=== PATIENT | female | born 1950 | race Caucasian/White ===

== ENCOUNTER 2024-02-29 09:17 | Emergency (ER) | payer SELFPAY ==
[2024-02-29] VITALS (12 sets, daily range): BP systolic 118–152; BP diastolic 59–76; PULSE 69–83; RESP 11–24; TEMP 36.8; O2SAT 95–100; BMI 21.7
--- NOTE | 2024-02-29 09:26 | ED.SYNCOPE ---
HPI - Syncope General Chief Complaint: Syncope Stated Complaint: Syncope Time Seen by Provider: 02/29/24 09:25 History of Present Illness HPI narrative: Patient is a 73-year-old female history of hypothyroidism presenting today with syncopal episode. Reports that she is visiting from [place] came in a few days ago she has been dealing with hip pain on the left side. She had some sort of nerve block in her gluteus, not in her spinal cord, about 3-4 weeks ago and since then has been having some pain. She got up this morning felt like she was dizzy had some blurriness of vision knew she needed to sit down went to go to the bed but missed the bed and hit the floor. Brief loss of consciousness. Not on antiplatelet or anticoagulation medication. She is pain in her hip which is chronic she has a numbness or tingling no changes in bowel or bladder habits no back pain. has not noticed any facial droop or slurring of speech. She reports that they were getting ready to go to breakfast. She is hungry. She has no numbness tingling or weakness. She has no chest pain or shortness of breath. No abdominal pain no painful frequent urination. She was feeling well yesterday. Related Data Previous Rx's Medication Instructions Recorded hydrocodone 5 mg-acetaminophen 325 1 tab PO Q6H PRN pain #10 tabs 02/29/24 mg tablet prednisone 20 mg tablet 20 mg PO DAILY #5 tabs 02/29/24 Allergies Allergy/AdvReac Type Severity Reaction Status Date / Time No Known Drug Allergies Allergy Verified 02/29/24 09:30 Patient History Social History Smoking Status: Never smoker Exam Initial Vital Signs Initial Vital Signs: Vital Signs Pulse Rate 74 02/29/24 09:20 Pulse Oximetry 100 02/29/24 09:20 GENERAL: Alert pleasant well-appearing 73-year-old female and in no acute distress. HEENT: Head atraumatic,EOMI, pupils reactive, face symmetric, moist mucous membranes CARDIOVASCULAR: Regular rate and rhythm without murmurs, rubs or gallops. RESPIRATORY: Breath sounds equal bilaterally, no wheezes rales or rhonchi. ABDOMEN: Soft, nontender. Normoactive bowel sounds all 4 quadrants. No guarding or rebound. EXTREMITIES: Normal range of motion, no clubbing or edema. Neurovascularly intact NEUROLOGICAL: Alert and oriented x4.Normal gait and speech. Cranial nerves II through XII grossly intact. Good [id number], good [id number], strength equal bilaterally, no dysarthria or aphasia, sensation in tact to soft touch bilaterally, no visual changes, no facial droop SKIN: Warm, dry, no laceration, no petechiae, no rashes or lesions. Scores NIH Stroke Scale Level of Conciousness: Alert, keenly responsive Ask month/age: Answers both questions correctly. Open/close eyes, close hand: Performs both tasks correctly Best gaze horizontal: Normal Visual hinds: No visual loss Facial palsy: Normal symetrical movement Left arm drift: No drift for full 10 sec Right arm drift: No drift for full 10 sec Left leg drift: No drift for full 5 sec Right leg drift: No drift for full 5 sec Limb ataxia: Absent Sensory on face/arms/legs: Normal, no sensory loss Best language: No aphasia, normal Dysarthria: Normal Extinction or inattention: No abnormality Total NIH Stroke scale score: 0 Course Orders Ordered: ED Orders 02/29/24 09:25 Complete Blood Count AUTO DIFF Stat Comprehensive Metabolic Panel Stat D Dimer Stat Lipase Stat Troponin & CK Cardiac Panel Stat 02/29/24 09:26 XR chest 1V Stat EKG-12 Lead Stat 02/29/24 10:00 Urine Culture Stat Urine Microscopic Stat Discontinued Medications Ketorolac Tromethamine (Ketorolac 30 Mg/Ml Vial) 15 mg IV NOW ONE Stop: 02/29/24 10:28 Last Admin: 02/29/24 10:52 Dose: 15 mg Documented By: SPF Vital Signs Vital signs: Vital Signs - 8 hr 02/29/24 09:20 02/29/24 09:25 02/29/24 09:26 Temperature 98.2 F Pulse Rate 74 71 Pulse Rate [Orthostatic Lying] Pulse Rate [Orthostatic Sitting] Pulse Rate [Orthostatic Standing] Respiratory Rate 15 Blood Pressure 133/62 133/62 Blood Pressure [Orthostatic Lying] Blood Pressure [Orthostatic Sitting] Blood Pressure [Orthostatic Standing] Pulse Oximetry 100 99 Oxygen Delivery Method Room Air 02/29/24 09:26 02/29/24 09:30 02/29/24 09:52 Temperature Pulse Rate 74 72 75 Pulse Rate [Orthostatic Lying] Pulse Rate [Orthostatic Sitting] Pulse Rate [Orthostatic Standing] Respiratory Rate 11 L 12 24 Blood Pressure Blood Pressure [Orthostatic Lying] Blood Pressure [Orthostatic Sitting] Blood Pressure [Orthostatic Standing] Pulse Oximetry 100 100 98 Oxygen Delivery Method Room Air 02/29/24 09:52 02/29/24 09:54 02/29/24 09:54 Temperature Pulse Rate 78 Pulse Rate [Orthostatic Lying] Pulse Rate [Orthostatic Sitting] Pulse Rate [Orthostatic Standing] Respiratory Rate Blood Pressure 152/67 H 141/63 H Blood Pressure [Orthostatic Lying] Blood Pressure [Orthostatic Sitting] Blood Pressure [Orthostatic Standing] Pulse Oximetry 99 Oxygen Delivery Method 02/29/24 09:55 02/29/24 09:55 02/29/24 09:58 Temperature Pulse Rate 83 Pulse Rate [Orthostatic Lying] 76 Pulse Rate [Orthostatic Sitting] 74 Pulse Rate [Orthostatic Standing] 83 Respiratory Rate 24 Blood Pressure 118/59 L Blood Pressure [Orthostatic Lying] 152/76 H Blood Pressure [Orthostatic Sitting] 141/63 H Blood Pressure [Orthostatic Standing] 118/59 L Pulse Oximetry 99 Oxygen Delivery Method Room Air 02/29/24 10:06 02/29/24 10:30 02/29/24 10:30 Temperature Pulse Rate 83 72 Pulse Rate [Orthostatic Lying] Pulse Rate [Orthostatic Sitting] Pulse Rate [Orthostatic Standing] Respiratory Rate 23 22 Blood Pressure 124/61 Blood Pressure [Orthostatic Lying] Blood Pressure [Orthostatic Sitting] Blood Pressure [Orthostatic Standing] Pulse Oximetry 98 95 Oxygen Delivery Method 02/29/24 11:00 02/29/24 11:00 02/29/24 11:21 Temperature Pulse Rate 73 69 Pulse Rate [Orthostatic Lying] Pulse Rate [Orthostatic Sitting] Pulse Rate [Orthostatic Standing] Respiratory Rate 20 21 Blood Pressure 146/67 H 146/67 H Blood Pressure [Orthostatic Lying] Blood Pressure [Orthostatic Sitting] Blood Pressure [Orthostatic Standing] Pulse Oximetry 97 96 Oxygen Delivery Method Room Air MDM - Syncope Lab Data 02/29/24 09:25 02/29/24 09:25 Labs: Lab Results 02/29/24 02/29/24 Range/Units 09:25 10:00 WBC 8.9 (4.5-11.0) X10^3/uL RBC 3.73 L (4.0-5.2) X10^6/uL Hgb 11.9 L (12.0-16.0) g/dL Hct 35.4 L (36-46) % MCV 94.7 (80-100) fL MCH 32.0 (26-34) PG MCHC 33.8 (30-36) % RDW 13.9 (11.6-14.8) % Plt Count 255 (150-400) X10^3/uL Neut % (Auto) 80.4 H (50-75) % Lymph % (Auto) 7.0 L (25-40) % [place] % (Auto) 9.9 (3-14) % Eos % (Auto) 2.3 (2-4) % Baso % (Auto) 0.4 (0-2) % Neut # (Auto) 7200 H (9185-1603) /uL Lymph # (Auto) 600 L (5818-0390) /uL [place] # (Auto) 900 (0-900) /uL Eos # (Auto) 200 (0-450) /uL Baso # (Auto) 0 (0-100) /uL D-Dimer 726 H (<500) ng/ml Sodium 134 L (137-145) mmol/L Potassium 3.7 (3.4-5.1) mmol/L Chloride 103 (98-107) mmol/L Carbon Dioxide 24 (22-32) mmol/L BUN 13 (7-17) mg/dL Creatinine 0.89 (0.52-1.04) mg/dL Estimated GFR > 60 (>60) mL/min BUN/Creatinine Ratio 14.6 (6-22) Glucose 119 H (80-110) mg/dL Calcium 9.2 (8.4-10.2) mg/dL Total Bilirubin 0.7 (0.2-1.3) mg/dL AST 33 (14-36) IU/L ALT 23 (<35) IU/L Alkaline Phosphatase 98 (38-126) U/L Total Creatine Kinase 32 (30-135) U/L Troponin I < 0.012 (0.01-0.034) ng/mL Total Protein 7.4 (6.3-8.2) g/dL Albumin 4.4 (3.5-5.0) g/dL Globulin 3.0 (1.7-4.1) g/dL Albumin/Globulin Ratio 1.5 (1.0-2.8) Lipase 46 (23-300) U/L Urine RBC None seen (0-5/HPF) Urine WBC 1-5/hpf (0-5/HPF) Ur Squamous Epith Cells 1-5 /hpf (0-5/HPF) Urine Bacteria None seen (None) Ur Culture Indicated? Specimen cultured Vol Urine Centrifuged 10ml (spun) Urine Dip Bedside Urine Glucose Negative Bedside Urine Bilirubin - Negative Bedside Urine Ketone - Negative Urine Specific [place] 1.015 Bedside Urine Occult Blood - Negative Bedside Urine pH 7.0 Bedside Urine Protein +/- 15 Bedside Urine Urobilinogen - Negative Bedside Urine Nitrite - Negative Bedside Urine Leukocytes +/- 15 Esterase Imaging Data Chest x-ray: Radiologist's Impression: PROCEDURE: XR CHEST 1V INDICATIONS: syncope TECHNIQUE: One view of the chest was acquired. COMPARISON: None. FINDINGS: Surgical changes and devices: None. Lungs and pleura: Lungs are clear. No pleural effusions or pneumothorax. Mediastinum: Mediastinal contours appear normal. Heart size is normal. Bones and chest wall: No suspicious bony lesions. Overlying soft tissues appear unremarkable. IMPRESSION: No acute cardiopulmonary abnormality is seen. Dictated by: Keyanna Craig M.D. on 02/29/2024 at 8:41 ECG Data Attestation: I personally reviewed and interpreted this ECG as follows: Interpretation: Normal sinus rhythm rate 71 MA interval 130 QRS [address] changes no T-wave inversions no priors to compare MDM Narrative Medical decision making narrative: Patient is 73-year-old female presenting today with syncopal episode. She had some presyncopal symptoms such as blurry vision dizziness. Brief loss of consciousness. Vitals are stable. She recently flew from [place] but she has no chest pain shortness of breath. No tachycardia or hypoxia. Blood work has been reviewed WBC 8.9 hemoglobin 11.9 hematocrit 35.4 platelets 255 Sodium 134 potassium 3.7 chloride 103 bicarb 24 BUN 13 creatinine 0.89 glucose 119 Troponin negative Liver enzymes within normal limits D-dimer 726 Chest x-ray reviewed no acute cardiopulmonary process EKGs reviewed no ischemia or arrhythmia Years score is negative, D-dimer is less than 1000 this is unlikely to be a pulmonary embolism NIH stroke scale is 0 no signs or symptoms of CVA. No need for imaging Patient had a syncopal episode with prodromal syndrome she is having some chronic ongoing hip pain but no cauda equina symptoms. Patient's injection 3-4 weeks ago was in her gluteus it was not in her spine. She has an appointment with her provider in about [address] [place] She has no injury from her fall. Vitals remain stable blood work has been reviewed overall reassuring. YEARS Algorithm for Pulmonary Embolism (PE) from [facility] on 02/29/2024 All calculations should be rechecked by clinician prior to use RESULT SUMMARY: PE excluded YEARS algorithm rules out PE (0.43% with symptomatic VTE during 3-month follow-up) INPUTS: patient ?> 0 = No Clinical signs of DVT ?> 0 = No Hemoptysis ?> 0 = No PE most likely diagnosis ?> 0 = No D-dimer >=,000 ng/mL FEU ?> 0 = No Discharge Plan Departure Patient Disposition: Home Clinical Impression: Vasovagal syncope Instructions: DI for Syncope in Adults (Fainting) Activity Restrictions/Additional Instructions: *You have been diagnosed with fainting syncope *What to do: At this time blood work is overall reassuring you are mildly anemic you may need to follow-up with your providers in [place] *Continue to take medications as directed Prednisone 20 mg once a day for 5 days Stella 1 tablet every 6 hours or at nighttime for severe *Follow up with your primary care provider in 2-3 days or call [phone] *Return to ER if you should have recurrent episode of passing out chest pain shortness of breath [or] any new, worsening or concerning symptoms CONTROLLED SUBSTANCE DISCHARGE (Narcotoic/benzodiazepine/Flexeril/Phenergan) 1. You have been prescribed narcotic medications, it does have acetaminophen/Tylenol/paracetamol in it, DO NOT TAKE MORE THAN 4,00mg in 24 hours of Tylenol. TRAMADOL DOES NOT CONTAIN TYLENOL 2. Please understand that we cannot provide further refills of narcotics, benzodiazepines or controlled substances through the ED and her pain management will need to be through your provider. 3. While on these medications you cannot drive or operate heavy machinery. 4. You cannot sign legal documents or perform any duties such as this. 5. As long as you're taking opiate pain medications he should also be taking a stool softener such as Colace, Dulcolax, MiraLAX or prune juice, to help avoid constipation. Prescriptions: New hydrocodone-acetaminophen 5-325 mg tablet 1 tab PO Q6H PRN (Reason: pain) Qty: 10 0RF prednisone 20 mg tablet 20 mg PO DAILY Qty: 5 0RF Stand Alone Forms: Patient Portal/API/Survey
--- NOTE | 2024-02-29 09:28 | EKG_ITS ---
[address] [address] Test Date: 2024-02-29 Pat Name: Asia Boyd Department: Room: Gender: Female [place]: : 1950 Requested By: Order Number: [id number] Reading MD: Steffen Shelley Measurements Intervals [place] Rate: 71 P: 42 HI: 130 QRS: 59 QRSD: 88 T: 68 QT: 382 QTc: 415 Interpretive Statements Normal sinus rhythm Electronically Signed On 03-02-2024 19:40:49 PST by Steffen Shelley
[2024-02-29 09:41] LABS: Add Manual Diff / Slide Review NO; Basophils Absolute Auto 0 /uL (0-100); Basophils Percent Auto 0.4 % (0-2); Eosinophils Absolute Auto 200 /uL (0-450); Eosinophils Percent Auto 2.3 % (2-4); Hematocrit 35.4 % (36-46); Hemoglobin 11.9 g/dL (12.0-16.0); Lymphocytes Absolute Auto 600 /uL (1100-4500); Mean Corpuscular HGB Conc 33.8 % (30-36); Mean Corpuscular Volume 94.7 fL (80-100); Monocytes Absolute Auto 900 /uL (0-900); Monocytes Percent Auto 9.9 % (3-14); Neutrophils Absolute Auto 7200 /uL (1500-7000); Neutrophils Percent Auto 80.4 % (50-75); Platelet Count 255 X10^3/uL (150-400); Red Blood Cell Count 3.73 X10^6/uL (4.0-5.2); Red Cell Distribution Width 13.9 % (11.6-14.8); White Blood Cell Count 8.9 X10^3/uL (4.5-11.0)
[2024-02-29 09:44] LABS: Alanine Aminotransferase 23 IU/L (<35); Albumin 4.4 g/dL (3.5-5.0); Albumin Globulin Ratio 1.5 (1.0-2.8); Alkaline Phosphatase 98 U/L (38-126); Aspartate Aminotransferase 33 IU/L (14-36); BUN Creatinine Ratio 14.6 (6-22); Bilirubin Total 0.7 mg/dL (0.2-1.3); Blood Urea Nitrogen 13 mg/dL (7-17); Calcium 9.2 mg/dL (8.4-10.2); Carbon Dioxide 24 mmol/L (22-32); Chloride 103 mmol/L (98-107); Creatine Kinase 32 U/L (30-135); Estimated Glomerular Filt Rate > 60 mL/min (>60); Glucose 119 mg/dL (80-110); HEMOLYSIS < 15 (0-50); Lipase 46 U/L (23-300); Potassium 3.7 mmol/L (3.4-5.1); Sodium 134 mmol/L (137-145); Total Protein 7.4 g/dL (6.3-8.2)
[2024-02-29 09:46] LABS: D Dimer 726 ng/ml (<500)
[2024-02-29 09:56] LABS: Troponin I < 0.012 ng/mL (0.01-0.034)
[2024-02-29 10:20] LABS: Urine Volume 10mL (spun)
[2024-02-29 10:26] LABS: Bacteria Urine None Seen; Culture Indicated Urine Specimen Cultured; RBC Urine None Seen (0-5/HPF); Squamous Epithelial Cell Urine 1-5 /HPF (0-5/HPF); WBC Urine 1-5/HPF (0-5/HPF)
[2024-02-29] MEDS: KETOROLAC 30 MG/ML VIAL 15 MG IV (10:52)
== END 2024-02-29 11:22 | disposition home or self-care (01) ==
PROVIDERS: Emergency Provider Emergency Medicine
DX: R55 Syncope and collapse (principal)
CPT/HCPCS: 71045; 80053; 81003; 81015; 82550; 83690; 84484; 85025; 85379; 87086; 93005; 96374; 99284; J1885